=== PATIENT | male | born 1960 | race Caucasian/White ===

== ENCOUNTER 2017-12-17 19:01 | Emergency (ER) | payer SELFPAY ==
[~2017-12-17] VITALS: Ht 162.6 cm; Wt 86.2 kg
[2017-12-17 19:20] VITALS: BP 116/67
== END 2017-12-17 19:23 | disposition left against medical advice (07) ==
LOC: ER 19:16
DX: R07.89 Other chest pain (principal); Z53.21 Procedure and treatment not carried out due to patient leaving prior to being seen by health care provider